=== PATIENT | male | born 1980 | race Caucasian/White ===

== ENCOUNTER 2018-03-21 01:07 | Emergency (ER) | payer SELFPAY ==
[~2018-03-21] VITALS: Ht 182.9 cm; Wt 91.0 kg
[2018-03-21 01:13] VITALS: BP 134/78
== END 2018-03-21 03:00 | disposition home or self-care (01) ==
LOC: ER 01:10 → EDBD 01:10 → ER 03:00
DX: F19.10 Other psychoactive substance abuse, uncomplicated (principal); Z53.29 Procedure and treatment not carried out because of patient's decision for other reasons; Z78.1 Physical restraint status
CPT/HCPCS: 99283